=== PATIENT | male | born 1985 | race Caucasian/White ===

== ENCOUNTER 2018-02-14 05:14 | Emergency (ER) | payer OTHER ==
[~2018-02-14] VITALS: Ht 172.7 cm; Wt 86.0 kg
[2018-02-14 05:18] VITALS: TEMP 36.8; Ht 172.7 cm; Wt 86.0 kg
[2018-02-14] MEDS ORDERED: MTR600X PO (05:37)
--- NOTE | 2018-02-14 05:55 | EMERGENCY ROOM VISIT NOTE ---
History Report prepared by Gera: Anastacia Swan Under the Supervision of: Dr. Amy Meza D.O. First contact with patient: 05:24 Chief Complaint: FOOT PAIN Stated Complaint: BLOOD RETENTION AND PAIN History of Present Illness The patient is a 33 year old male who presents to the Emergency Room with complaints of worsening foot pain starting this morning. The patient states that on November 23 he totaled his truck and required pins to be placed in his left leg and left foot. He states that he had this done in [place]. He reports that he had the pins removed on January 17. He reports that he was sleeping tonight and woke up with the pain. He reports that it is swollen and warm to the touch. He currently rates his pain as a 9/10 in severity. The patient states that the pain is worse with movement. He notes that he was able to bear minimal weight prior to this, but now cannot at all. The patient notes that he was placed on two cycles of antibiotics after the pins were pulled from his foot. He notes that his foot was not red at this time and he stopped taking his antibiotics 2 weeks ago when they ran out. The patient complains of not being able to move his bowels. The patient denies knee pain, fevers, chills, nausea, vomiting, abdominal pain, diarrhea, and taking any pain medications. Source of History: patient Onset: this morning Position: foot (left) Symptom Intensity: 9/10 Quality: other (swollen, red) Timing: worsening Modifying Factors (Worsening): movement Associated Symptoms: No fevers, No chills, No nausea, No vomiting, No abdominal pain, No diarrhea Note: The patient complains of not being able to move his bowels. The patient denies knee pain. Review of Systems See HPI for pertinent positives & negatives. A total of 10 systems reviewed and were otherwise negative. Past Medical & Surgical Surgical Problems: (1) Hx of appendectomy (2) Hx of foot surgery Family History No pertinent family history Social History Smoking Status: Never Smoker Marital Status: in relationship Housing Status: lives with significant other Current/Historical Medications Scheduled Cephalexin Monohydrate (Keflex), 500 MG PO QID Cyclobenzaprine Hcl (Flexeril), 10 MG PO TID Sulfamethoxazole-Trimethoprim (Bactrim Ds 800MG/160MG), 1 TAB PO BID Scheduled PRN Ibuprofen (Ibuprofen), 1,200 MG PO DIRECTED PRN for Pain Allergies Coded Allergies: No Known Allergies (Unverified , 02/14/18) Physical Exam Vital Signs Date Time Temp Pulse Resp B/P (MAP) Pulse Ox O2 Delivery O2 Flow Rate FiO2 02/14/18 05:18 36.8 102 20 128/83 94 Room Air Physical Exam HEENT: Head - normocephalic and atraumatic Pupils are equal, round, and reactive to light. Extraocular eye muscles are intact, and sclera are anicteric. Nose - moist nasal mucosa without discharge. Mouth - moist buccal mucosa. Oropharynx is nonerythematous and there is no tonsillar exudate or edema noted. Neck: Supple; no JVD, nuchal rigidity, cervical lymphadenopathy. Heart: Regular rate and rhythm. There is a normal S1 and S2 with no murmurs, clicks, or gallops appreciated. Lungs: Clear to auscultation bilaterally with no wheezes, rales, or rhonchi. Abdomen: Soft, completely nontender, nondistended, with good bowel sounds. There are no palpable pulsatile masses or hepatosplenomegaly. There is no guarding, rigidity, or rebound noted. Extremities: Left foot- Diffuse erythema distal to the ankle. Warmth to the touch. Exquisite pain with flexion of the toes. The right lower extremity was normal. No evidence of cyanosis or clubbing. There are easily palpable peripheral pulses. Skin: warm and dry with good turgor. Medical Decision & Procedures ER Provider Diagnostic Interpretation: L FOOT X-RAY: The results were interpreted by me. No obvious bony abnormality or evidence of osteomyelitis. Laboratory Results 02/14/18 05:53 Red Blood Count 5.18, Mean Corpuscular Volume 83.8, Mean Corpuscular Hemoglobin 27.6, Mean Corpuscular Hemoglobin Concent 32.9, Mean Platelet Volume 11.0, Neutrophils (%) (Auto) 67.8, Lymphocytes (%) (Auto) 19.0, Monocytes (%) (Auto) 11.7, Eosinophils (%) (Auto) 0.8, Basophils (%) (Auto) 0.5, Neutrophils # (Auto ) 6.30, Lymphocytes # (Auto) 1.77, Monocytes # (Auto) 1.09, Eosinophils # (Auto ) 0.07, Basophils # (Auto) 0.05 02/14/18 05:53 Test 02/14/18 05:49 02/14/18 05:53 Bedside Lactic Acid Venous 1.35 mmol/L (0.90-1.70) White Blood Count 9.30 K/uL (4.8-10.8) Red Blood Count 5.18 M/uL (4.7-6.1) Hemoglobin 14.3 g/dL (14.0-18.0) Hematocrit 43.4 % (42-52) Mean Corpuscular Volume 83.8 fL (80-100) Mean Corpuscular Hemoglobin 27.6 pg (25-34) Mean Corpuscular Hemoglobin Concent 32.9 g/dl (32-36) Platelet Count 268 K/uL (130-400) Mean Platelet Volume 11.0 fL (7.4-10.4) Neutrophils (%) (Auto) 67.8 % Lymphocytes (%) (Auto) 19.0 % Monocytes (%) (Auto) 11.7 % Eosinophils (%) (Auto) 0.8 % Basophils (%) (Auto) 0.5 % Neutrophils # (Auto) 6.30 K/uL (1.4-6.5) Lymphocytes # (Auto) 1.77 K/uL (1.2-3.4) Monocytes # (Auto) 1.09 K/uL (0.11-0.59) Eosinophils # (Auto) 0.07 K/uL (0-0.5) Basophils # (Auto) 0.05 K/uL (0-0.2) RDW Standard Deviation 42.6 fL (36.4-46.3) RDW Coefficient of Variation 14.0 % (11.5-14.5) Immature Granulocyte % (Auto) 0.2 % Immature Granulocyte # (Auto) 0.02 K/uL (0.00-0.02) Erythrocyte Sedimentation Rate 70 mm/hr (0-14) Anion Gap 7.0 mmol/L (3-11) Est Creatinine Clear Calc Drug Dose 174.1 ml/min Estimated GFR () 149.2 Estimated GFR (Non- 128.7 BUN/Creatinine Ratio 10.5 (10-20) Calcium Level 9.1 mg/dl (8.5-10.1) C-Reactive Protein 8.80 mg/dl (0-0.29) Laboratory results per my review. Medications Administered Medications (Trade) Dose Ordered Sig/Jefe Route Start Time Stop Time Status Last Admin Dose Admin Ketorolac Tromethamine (Toradol Inj) 30 mg NOW STAT IV 02/14/18 06:06 02/14/18 06:07 DC 02/14/18 06:14 30 MG Procedure 0606: Ordered Toradol Inj 30 mg IV. 0629: Ordered Flexeril Tab 10 mg PO, Rocephin Inj 1 gm IV. ED Course 05: Past medical records reviewed. The patient was evaluated in room B2. A complete history and physical exam was performed. Laboratory studies were drawn as above including a lactic acid. 06: Ordered Toradol Inj 30 mg IV. 06: Upon reevaluation, the patient had some pain relief. He states that he is now having muscle spasms and is asking for a muscle relaxer. He is going to get a dose of IV Rocephin and then go home. I spoke to him and his girlfriend about the importance of a follow up to have his foot rechecked by Saturday and reasons to return to the ED. I discussed findings and results with him. He verbalized agreement of the treatment plan. 0629: Ordered Flexeril Tab 10 mg PO, Rocephin Inj 1 gm IV. 0646: I reviewed the final part of the labs with the patient. I reviewed the discharge instructions in detail. I answered questions. Medical Decision The patient is a 33 year old male who presents to the Emergency Room with complaints of worsening foot pain starting this morning. Differential diagnoses include osteomyelitis, cellulitis, wound infection, reflex sympathetic dystrophy. LABS: Normal white blood cell count Normal H&H Sed rate 70 Normal renal function Normal glucose Normal lactic acid C reactive protein 8.8 This is a 33-year-old male patient who had an extensive traumatic injury to his left foot 3 months ago. He had an external fixator in place for some time and had the device and pins removed 2 weeks ago. In the past 2-3 days, the patient developed increased pain to that foot with some erythema and warmth to the touch. Patient has a negative lactic acid negative fever and no leukocytosis. He was encouraged to continue to use Motrin or Tylenol at home. I will prescribe a muscle relaxer for the next couple days. The patient was given an IV dose of Rocephin for what looks like cellulitis. He was given a prescription for Bactrim and Keflex to use over the next 10 days. Medication Reconcilliation Current Medication List: was personally reviewed by me Blood Pressure Screening Patient's blood pressure: Normal blood pressure Blood pressure disposition: Did not require urgent referral Impression Primary Impression: Cellulitis of left foot Scribe Attestation The scribe's documentation has been prepared under my direction and personally reviewed by me in its entirety. I confirm that the note above accurately reflects all work, treatment, procedures, and medical decision making performed by me. Departure Information Dispostion Home / Self-Care Prescriptions Cyclobenzaprine Hcl (FLEXERIL) 10 Mg Tab 10 MG PO TID, #12 TAB Prov: Amy Meza D.OYvette 02/14/18 Sulfamethoxazole-Trimethoprim (Bactrim Ds 800MG/160MG) 1 Tab Tab 1 TAB PO BID, #20 TAB Prov: Amy Meza D.OYvette 02/14/18 Cephalexin Monohydrate (KEFLEX) 500 Mg Cap 500 MG PO QID, #28 CAP Prov: Amy Meza D.O. 02/14/18 Referrals No Doctor, Assigned (PCP) Forms HOME CARE DOCUMENTATION FORM, IMPORTANT VISIT INFORMATION Patient Instructions My [facility] Additional Instructions Rest with your left foot elevated. Watch to ensure that the redness is not spreading up the leg. Take keflex and bactrim as directed. Follow up with your surgeon in [place] or an orthopedic surgeon locally by Saturday to have the foot rechecked. Return to the ER if you develop any icreased pain, spreading redness, or fever.
[2018-02-14 06:03] LABS: BASO % 0.5 %; BASO ABS # 0.05 K/uL (0-0.2); EOS % 0.8 %; EOS ABS # 0.07 K/uL (0-0.5); HEMATOCRIT 43.4 % (42-52); HEMOGLOBIN 14.3 g/dL (14.0-18.0); IG# 0.02 K/uL (0.00-0.02); LYMPH ABS # 1.77 K/uL (1.2-3.4); MEAN CELL VOLUME 83.8 fL (80-100); MEAN CORPUSCULAR HEMOGLOBIN 27.6 pg (25-34); MEAN CORPUSCULAR HGB CONC 32.9 g/dl (32-36); MONO % 11.7 %; MONO ABS # 1.09 K/uL (0.11-0.59); NEUT % 67.8 %; PLATELET COUNT 268 K/uL (130-400); RED CELL DISTRIBUTION WIDTH SD 42.6 fL (36.4-46.3)
[2018-02-14] MEDS ORDERED: KETOROLAC TROMETHAMINE 30 MG/ML VIAL IV STA (06:06)
[2018-02-14 06:22] LABS: CALCIUM 9.1 mg/dl (8.5-10.1); CREATININE 0.65 mg/dl (0.60-1.40); POTASSIUM 3.5 mmol/L (3.5-5.1)
[2018-02-14] MEDS ORDERED: CEFTRIAXONE SOD INJ 1 GM ADDVIAL IV STA (06:29)
[2018-02-14] MEDS ORDERED: CYCLOBENZAPRINE HCL 10 MG TAB PO STA (06:29)
[2018-02-14] MEDS ORDERED: CEPH500C2 PO (06:40)
[2018-02-14] MEDS ORDERED: CYCL10TA6 PO (06:40)
[2018-02-14] MEDS ORDERED: SULF800T23 PO (06:40)
--- NOTE | 2018-02-14 07:27 | DIAGNOSTIC IMAGING REPORT ---
LEFT FOOT 3 VIEWS HISTORY: Left foot pain. Recent surgery. evsl for osteo COMPARISON: None. FINDINGS: No fracture or dislocation within the left foot. Diffuse soft tissue swelling most pronounced within the ankle/hindfoot. Lucencies through the first and third metatarsals consistent with old postoperative change. There is no indeterminate 1.4 cm lucency in the plantar aspect of the calcaneus. Degenerative changes at the ankle and talonavicular joint. The talocalcaneal joint appears fused. There is a pes planus deformity. No radiopaque foreign bodies. IMPRESSION: 1. Diffuse soft tissue swelling most pronounced within the ankle/hindfoot. 2. Talocalcaneal fusion. A 1.4 cm indeterminate lucency within the posterior calcaneus favors postoperative change consistent with prior hardware removal. Clinical correlation recommended. Electronically signed by: Isma Turner M.D. 02/14/2018 7:25 AM Dictated Date/Time: 02/14/2018 7:22 AM
[2018-02-14 07:40] VITALS: BP 132/62; PULSE 75; O2SAT 97
== END 2018-02-14 07:50 | disposition home or self-care (01) ==
LOC: C.EDB 05:16
DX: L03.116 Cellulitis of left lower limb (principal); Z98.890 Other specified postprocedural states; Z87.828 Personal history of other (healed) physical injury and trauma